=== PATIENT | female | born 2000 | race Caucasian/White ===

== ENCOUNTER → 2018-03-23 12:24 | Outpatient (CLI) | payer OTHER, SELFPAY ==
--- NOTE | 2018-03-23 | DI.MRI.S_ITS ---
PROCEDURE: MR SHOULDER RT W CON INDICATIONS: RIGHT SHOULDER PAIN TECHNIQUE: After the administration of 12 mL of dilute intra-articular Gadolinium contrast, oblique coronal T1 and T2 spin echo with fat saturation, oblique sagittal T1 spin echo with and without fat saturation, oblique sagittal T2 fast spin echo with fat saturation, axial T1 spin echo with fat saturation through the shoulder. COMPARISON: None. FINDINGS: Image quality: Excellent. Rotator cuff: The supraspinatus, infraspinatus, teres minor and subscapularis tendons appear intact throughout. No rotator cuff muscle atrophy on sagittal images. Mild postinjection changes seen in the subscapularis muscle belly. Bones and bursae: No bone marrow contusions or fractures. No acromioclavicular joint degeneration. The acromion demonstrates conventional anatomy, without an os acromiale. Small amount of subacromial/subacute bursal fluid without T1 shortening. Capsule and soft tissues: The labrum and glenohumeral ligaments appear intact. There is mild blunted appearance of the posterior labrum however no intrasubstance gadolinium signal intensity. Incidental sub-labral foramen. The long head of the biceps tendon demonstrates normal location and morphology. The rotator interval appears normal, without fibrosis. The coracohumeral ligament is of normal thickness. No intra-articular bodies. IMPRESSION: Mild subacromial/subdeltoid bursitis. No definite rotator cuff or labral tear. Dictated by: Eduardo Zavaleta M.D. on 03/23/2018 at 14:31 Approved by: Eduardo Zavaleta M.D. on 03/23/2018 at 14:39
--- NOTE | 2018-03-23 | DI.RAD.S_ITS ---
PROCEDURE: FL ARTHROGRAM SHOULDER RT INDICATIONS: RIGHT SHOULDER PAIN TECHNIQUE: The indications, alternatives, benefits, risks, and complications of the procedure were explained to the patient. Written informed consent was obtained and placed in the chart. The shoulder was examined fluoroscopically and a site for needle placement chosen for entry into the glenohumeral joint from an anterior approach. The skin was prepped and draped in a sterile fashion, and 1% lidocaine infiltrated from skin down to joint capsule. A spinal needle was inserted into the glenohumeral joint, and a small amount of iodinated contrast media injected to confirm intra-articular placement of the needle tip. This was followed by approximately 12 mL dilute solution of a gadolinium containing MR contrast agent. The needle was removed and a dressing was applied. The patient was given postprocedural instructions and sent to the MR suite for MR imaging. FINDINGS: A single fluoroscopic spot image demonstrates intra-articular location of injected iodinated contrast. IMPRESSION: Successful fluoroscopically guided administration of dilute Gadolinium solution into the shoulder joint for MR arthrogram. Dictated by: Eduardo Zavaleta M.D. on 03/23/2018 at 14:25 Approved by: Eduardo Zavaleta M.D. on 03/23/2018 at 14:25
== END ==
PROVIDERS: PCP Acupuncturist; Visit Provider Acupuncturist
DX: M25.511 Pain in right shoulder (principal); M75.51 Bursitis of right shoulder
CPT/HCPCS: 23350; 73040; 73222; 77002